=== PATIENT | male | born 1980 | race Caucasian/White ===

== ENCOUNTER → 2020-01-10 | Emergency (ER) | payer OTHER, BC ==
[~2020-01-10] VITALS: Ht 175 cm; Wt 65.7 kg
[~2020-01-10] MED LIST: CEPH-507 PO; RX-HYDROCODONE/APAP 5/325 MG #4 TAB PK PO PRN; TETANUS,DIPTH,PERTUSS P/F (BOOSTRIX) 0.5 ML VIAL IM ONE
--- OUTSIDE RECORDS SUMMARY | 2020-01-10 21:08 | XMS REPORT | Continuity of Care Document ---
Author Organization Unknown Address Unknown Phone Unavailable Allergies There is no data. Medications There is no data. Problems There is no data. Procedures There is no data. Results Test Result Range COVID-19 ([facility]) - 12/13/19 11:09 Encounters ACCT No. Visit Date/Time Discharge Status Pt. Type Provider Facility Loc./Unit Complaint [id number] 12/13/2019 09:40:00 12/13/2019 23:59: 59 [facility] Outpatient [facility] [id number] 12/13/2019 09:40:00 Document Registration
[2020-01-10 21:11] VITALS: BP 144/83
--- NOTE | 2020-01-10 21:16 | ED Upper Extremity ---
General Chief Complaint: Upper Extremity Stated Complaint: R HAND LAC Source: patient Exam Limitations: no limitations History of Present Illness Date Seen by Provider: Jan 10, 2020 Time Seen by Provider: 21:13 Initial Comments To ER with laceration to the right hand. This occurred while at work at [employer] [place]. He was taking a garage door frame off including the spring boor but the Amber to hypertension on it and when it decompressed it struck his right hand. Tetanus is not up-to-date. Onset: just prior to arrival Severity: moderate Pain/Injury Location: right hand, right thumb Method of Injury: direct blow Modifying Factors: Worse With Movement Allergies and Home Medications Allergies Coded Allergies: No Known Drug Allergies (Unverified , 01/10/20) Home Medications Cephalexin 500 Mg Capsule, 500 MG PO TID Prescribed by: ANDREA SHAH on 01/10/202139 Patient Home Medication List Home Medication List Reviewed: Yes Review of Systems Constitutional: see HPI EENTM: see HPI Respiratory: no symptoms reported Cardiovascular: no symptoms reported Genitourinary: no symptoms reported Musculoskeletal: no symptoms reported Past Ziekvtp-Fpwrco-Jwqwoe Hx Patient Social History Recent Foreign Travel: No Contact w/Someone Who Travel: No Physical Exam Vital Signs Vital Signs - First Documented 01/10/20 21:11 Temp 36.7 Pulse 86 Resp 18 B/P (MAP) 144/83 (103) Pulse Ox 98 Capillary Refill : Height, Weight, BMI Height: '" Weight: lbs. oz. kg; BMI Method: General Appearance: WD/WN, no apparent distress Respiratory: no respiratory distress, no accessory muscle use Shoulder: normal inspection, non-tender Elbow/Forearm: normal inspection, non-tender Wrist: Yes normal inspection, Yes non-tender Hand: Right (swelling, 2 superficial lacerations to the thenar eminence of the right hand. Laceration to the dorsal aspect middle phalanx middle finger. These were all cleansed with chlorhexidine/saline solution and dried and covered with glue.) Progress/Results/Core Measures Results/Orders My Orders Orders - ANDREA SHAH APRN Hand, Right, 3 Views (01/10/20 21:11) Dipht,Pertuss(Acell),Tet Adult (Boostrix (01/10/20 21:15) Vital Signs/I&O 01/10/20 21:11 Temp 36.7 Pulse 86 Resp 18 B/P (MAP) 144/83 (103) Pulse Ox 98 Diagnostic Imaging Diagonstic Imaging: CT Departure Communication (Admissions) After reviewing the x-ray there appears to be some gas in the soft tissues of the thenar eminence of the hand. As such these will be treated like more of a puncture wound. The glue was removed, these were left open, wrapped with gauze and given a prescription for antibiotics. Impression Primary Impression: Contusion of hand Qualified Codes: S60.221A - Contusion of right hand, initial encounter Additional Impression: Hand laceration Qualified Codes: S61.411A - Laceration without foreign body of right hand, initial encounter Disposition: 01 HOME, SELF-CARE Condition: Stable Departure-Patient Inst. Decision time for Depature: 21:16 Patient Instructions: Laceration Repair With Glue (DC) Add. Discharge Instructions: 1. No use of the right hand for 3 days. He may return to the emergency room for any concerns. All discharge instructions reviewed with patient and/or family. Voiced understanding. Scripts Cephalexin (Keflex) 500 Mg Capsule 500 MG PO TID, #12 CAP Prov: ANDREA SHAH ADDING MACHINE SERVICER 01/10/20 ANDREA SHAH APRN Jan 10, 2020 21:16
--- NOTE | 2020-01-10 22:03 | Diagnostic Imaging Report ---
INDICATION: Hand injury, multiple small lacerations. EXAMINATION: Right hand, 01/10/2020. FINDINGS: Three views of the hand. There is soft tissue abnormality with subcutaneous emphysema noted overlying the proximal 1st phalanx. Surrounding soft tissue prominence is seen. No underlying fracture is appreciated. There is a tiny, 3 mm, hyperdensity noted just proximal to the interphalangeal joint of the thumb, possibly an acute foreign body correlate for laceration in this region. Remaining hand and osseous structures intact and unremarkable. IMPRESSION: Soft tissue abnormalities adjacent to the 1st metacarpal with a possible foreign body noted just proximal to the 1st interphalangeal joint. Dictated by: Dictated on workstation # [id number]
== END ==
LOC: ER 21:04
DX: S61.411A Laceration without foreign body of right hand, initial encounter (principal); S61.212A Laceration without foreign body of right middle finger without damage to nail, initial encounter; Z23 Encounter for immunization; W22.8XXA Striking against or struck by other objects, initial encounter; Y92.59 Other trade areas as the place of occurrence of the external cause; Y99.0 Civilian activity done for income or pay
CPT/HCPCS: 12041; 73130; 90715